=== PATIENT | male | born 1960 | race African-American/Black ===

== ENCOUNTER 2019-01-13 15:45 | Emergency (ER) | payer MEDICARE ==
[~2019-01-13] VITALS: Ht 188 cm; Wt 146.0 kg
[~2019-01-13 15:45] MED LIST: ALLOPURINOL100 MG PO; ALLOPURINOL300 MG OR; ALLOPURINOL300 MG PO; AMLODIPINE BESYL5 MG PO; AMLODIPINE5 MG OR; ASPIRIN EC81 MG PO; ATENOLOL100 MG OR; ATENOLOL50 MG PO; AUGMENTIN875TAB PO; BACTRIM DS1 TAB PO; BENADRY1 PO; BENICAR40 MG OR; CALCIUM600 M1 OR; CARDIZEM CD240 MG PO; CIPRO500 MG PO; CIPROFLOXACN500 MG PO; CLONIDINE0.1 MG PO; CLONIDINE0.2 MG OR; COREG12.5 MG PO; COREG6.25 MG PO; DILAUDID 2MG2 MG/TA1 PO; DIOVAN320 MG OR; DOCUSATE SOD100 MG PO; FLOMAX0.4 M1 PO; FLONASE NASAL50 MCG; FUROSEMIDE40 MG PO; HYDRALAZINE25 MG PO; IMDUR30 MG PO; LISINOPRIL10 MG PO; LO-DOSE ASA81 MG OR; LORTAB 5 OR; LORTAB 7.5 PO; LORTAB5 PO; LOTREL1 CA1 PO; LOTREL1 CA2 PO; LOVENOX30 MG/0.3 SC; MEDDOSEPAK PO; MILK OF MAG30 ML/UDC PO; MOTRIN800 MG OR; NORVASC10 M1 OR; NORVASC10 MG OR; NORVASC5 MG PO; OMEPRAZOLE20 MG PO; SPIRONOLACTONE25 MG PO; ULORIC40 MG PO; ULTRAM50 M1 PO; WARFARIN SODIUM5 MG PO; ZPAK PO
[2019-01-13 17:24] LABS: HEMATOCRIT 38.3 % (39.0-50.0); HEMOGLOBIN 12.2 g/dl (14.0-18.0); IMMATURE GRANULOCYTES 0.4 % (0.0-5.0); MEAN CELL VOLUME 86.7 fL CALC (80.0-100.0); MEAN CORPUSCULAR HGB 27.6 pG CALC (26.0-32.0); MEAN CORPUSCULAR HGB CONC 31.9 g/L CALC (32.0-36.0); NEUT# 5.07 thou/uL (1.82-7.42); RED BLOOD COUNT 4.42 mill/uL (4.70-6.10); RED CELL DISTRI WIDTH 13.9 % (11.5-15.5)
[2019-01-13] MEDS ORDERED: METOPROL TAR25 MG PO (17:31)
[2019-01-13] MEDS ORDERED: AMLODIPINE5 MG PO (17:32)
[2019-01-13] MEDS ORDERED: FUROSEMIDE20 MG PO (17:33)
[2019-01-13 17:36] LABS: ALBUMIN 3.9 g/dL (3.2-5.0); ALKALINE PHOSPHATASE 77 u/l (38-126); ANION GAP 14 (6-22 (CALC)); BUN 18 mg/dL (9-20); BUN/CREATININE RATIO 13 (12-20 (CALC)); CARBON DIOXIDE 28 mmol/l (22-30); CHLORIDE 101 mmol/l (95-108); CREATININE 1.4 mg/dL (0.7-1.3); GFR 52 ML/MIN (>=60 (CALC)); GFR FOR AFR.AMER. > 60 ML/MIN (>=60 (CALC)); PROTHROMBIN TIME 21.2 SECONDS (9.0-12.5); SGOT/AST 19 u/l (17-59); SODIUM 139 mmol/l (137-146); TOTAL PROTEIN 7.5 g/dL (6.3-8.2)
[2019-01-13] MEDS ORDERED: COUMADIN5 MG PO (17:37)
[2019-01-13 17:38] LABS: POTASSIUM 3.6 mmol/l (3.5-5.1)
[2019-01-13] MEDS ORDERED: WARFARIN7.5 MG PO (17:38)
[2019-01-13] MEDS ORDERED: VITAMIN D PO (17:40)
[2019-01-13 18:56] VITALS: BP 140/84
== END 2019-01-13 19:06 | disposition home or self-care (01) ==
LOC: ED 15:45
PROVIDERS: Emergency Medicine
DX: I10 Essential (primary) hypertension (principal); I48.91 Unspecified atrial fibrillation; Z79.01 Long term (current) use of anticoagulants

== ENCOUNTER 2019-02-01 19:35 | Emergency (ER) | payer MEDICARE ==
[~2019-02-01] VITALS: Ht 188 cm; Wt 141.8 kg
[~2019-02-01 19:35] MED LIST changes: +AMLODIPINE5 MG PO; +COUMADIN5 MG PO; +FUROSEMIDE20 MG PO; +METOPROL TAR25 MG PO; +VITAMIN D PO; +WARFARIN7.5 MG PO
[2019-02-01 19:45] VITALS: BP 164/94
[2019-02-01] MEDS ORDERED: MICARDIS H80 MG/25 M PO (19:54)
[2019-02-01] MEDS ORDERED: DOXYCYCL HYC100 MG PO (20:16)
[2019-02-01] MEDS ORDERED: TRAMADOL HCL50 MG PO (20:16)
== END 2019-02-01 20:32 | disposition home or self-care (01) ==
LOC: ED 19:35
DX: J01.90 Acute sinusitis, unspecified (principal); H10.021 Other mucopurulent conjunctivitis, right eye; R51 Headache; H53.8 Other visual disturbances; R09.81 Nasal congestion; R50.9 Fever, unspecified; I48.91 Unspecified atrial fibrillation

== ENCOUNTER → 2019-02-06 | Outpatient (REF) | payer MEDICARE ==
[~2019-02-06] MED LIST changes: +DOXYCYCL HYC100 MG PO; +MICARDIS H80 MG/25 M PO; +TRAMADOL HCL50 MG PO
[2019-02-06 08:19] LABS: CREATININE 1.8 mg/dL (0.7-1.3); POTASSIUM 3.4 mmol/l (3.5-5.1)
== END | disposition home or self-care (01) ==
LOC: LAB 07:16
PROVIDERS: ATTEND Internal Medicine
DX: I10 Essential (primary) hypertension (principal); N18.3 Chronic kidney disease, stage 3 (moderate)

== ENCOUNTER 2019-08-06 18:41 | Observation (INO) | payer MEDICARE ==
[~2019-08-06] VITALS: Ht 188 cm; Wt 131.0 kg
[~2019-08-06 18:41] MED LIST changes: +ACCU-CHEK FASTCLIX L XX; +GLIMEPIRIDE2 MG PO; +HYDROMORPHON8 MG PO; +JANUVIA50 MG PO; +LEVEMIR FL100 UNIT/M SC; -METOPROL TAR25 MG PO; +ONE TOUCH ULTRA 50 XX; +TOPROL XL PO; +WARFARIN1 MG PO; +WARFARIN2.5 MG PO
--- NOTE | 2019-08-06 18:50 | NUR ---
PATIENT ARRIVIED VIA FRONT DOOR LEFT SIDED WEAKNESS UPPER AND LOWER EXTREMITY, RIGHT SIDED FACIAL DROOP AND MILD DYSARTHRIA. VISUAL BLAIR INTACT, NO ATAXIA. NO SENSATION LOSS AND NO NEGLECT, PATIENT NOT ASPHASIC AND NO DRIFTS. HAND GRASPS EQUAL AND STRONG. STROKE ALERT CALLED
--- NOTE | 2019-08-06 18:55 | NUR ---
TO CT SCAN UPON ARRIVAL.
--- NOTE | 2019-08-06 19:26 | NUR ---
SWALLOW STUDY COMPLETE PATIENT ABLE TO SWALLOW WATER WITHOUT DIFFICULTY. PATIENT HAS POSITIVE GAG REFLEX
[2019-08-06 19:46] LABS: IMMATURE GRANULOCYTES 0.4 % (0.0-5.0); MEAN CORPUSCULAR HGB 27.9 pG CALC (26.0-32.0); MEAN CORPUSCULAR HGB CONC 32.9 g/L CALC (32.0-36.0); NEUT# 7.44 thou/uL (1.82-7.42); RED BLOOD COUNT 4.26 mill/uL (4.70-6.10); RED CELL DISTRI WIDTH 14.6 % (11.5-15.5)
[2019-08-06 19:51] LABS: HEMATOCRIT 36.2 % (39.0-50.0); HEMOGLOBIN 11.9 g/dl (14.0-18.0)
[2019-08-06 20:00] LABS: ACT PARTIAL THROMBO TIME 34.8 SECONDS (20.0-32.5); INTERNATIONAL NORMALIZED RATIO 1.4 RATIO (0.7-1.3); PROTHROMBIN TIME 14.7 SECONDS (9.0-12.5)
[2019-08-06] MEDS ORDERED: LEVEMIR FL100 UNIT/M SC (20:00)
--- NOTE | 2019-08-06 20:00 | NUR ---
NEURO INTACT NO DEFICITS NOTED
[2019-08-06 20:03] LABS: ALBUMIN 4.4 g/dL (3.2-5.0); BILIRUBIN, TOTAL 1.2 mg/dL (0.0-1.4); CREATININE 1.6 mg/dL (0.7-1.3); TOTAL PROTEIN 8.5 g/dL (6.3-8.2)
[2019-08-06] MEDS ORDERED: WARFARIN7.5 MG PO (20:11)
--- NOTE | 2019-08-06 21:30 | NUR ---
GOT UP TO BSC WITHOUT PROBLEM
--- NOTE | 2019-08-06 22:00 | NUR ---
REMAINS NEURO INTACT. AWAITING TRANSPORT TO FLOOR.
--- NOTE | 2019-08-06 22:35 | NUR ---
Admission Note Report Given to: ROSEMARIE ALTAMIRANO Transported by: X Wheelchair Stretcher Transported with: X Nurse Transporter X [employer] IV O2 X Communications Lead
[2019-08-06 22:40] VITALS: BP 143/85
--- NOTE | 2019-08-06 22:40 | NUR ---
PT ARRIVED TO THE FLOOR VIA WC ACCOMPANIED BY ED NURSE. PT APPEARS TO BE IN STABLE CONDITION. PT SELF AMBULATED TO STANDING SCALE, RESTROOM AND BACK TO BED. AIDE IS IN W/PT ORIENTING TO ROOM, BED, CALL SYSTEM, LIGHTS AND TV.
--- NOTE | 2019-08-06 22:55 | NUR ---
PT ASSESSMENT COMPLETED AT THIS TIME. PT DENIES ANY SOB/N/V/DIZZINESS/NUMBNESS OR CONFUSION AT THIS TIME. NEURO'S INTACT, SMALL AMOUNT OF MOUTH/LIP DROOP VISIBLE WHEN PT SPEAKS/PT REPORTS THIS HIS BASELINE "NORMAL" FOR HIM. STUNNER AND SHACKLER STRONG BILATERALLY, GOOD ROM TO BUE AND BLE/NO DRIFT OBSERVED. PT IN BED W/CALL LIGHT AT SIDE AND ENCOURAGED TO CALL IF ANY NEEDS ARISE.
--- NOTE | 2019-08-07 01:25 | NUR ---
PT SLEEPING AT THIS TIME. NO S/O DISTRESS NOTED. CALL LIGHT AT SIDE.
[2019-08-07 04:28] VITALS: BP 133/83
[2019-08-07 05:10] LABS: URINE BILIRUBIN - DIPSTICK NEGATIVE (NEGATIVE); URINE BLOOD DIPSTICK MODERATE (NEGATIVE); URINE COLOR YELLOW; URINE GLUCOSE - DIPSTICK NEGATIVE (NEGATIVE); URINE KETONE NEGATIVE (NEGATIVE); URINE NITRITE - DIPSTICK NEGATIVE (Negative); URINE PROTEIN - DIPSTICK TRACE mg/dL (NEG-TRACE); URINE SPECIFIC GRAVITY 1.015; URINE UROBILINOGEN - DIPSTICK 0.2 E.U./dL (0.2)
[2019-08-07 05:23] LABS: URINE LEUK ESTERASE NEGATIVE (NEGATIVE)
[2019-08-07 05:24] LABS: URINE EPITHELIAL CELLS FEW EPI/hpf (0-FEW); URINE RBC >100 RBC/hpf (0-5)
[2019-08-07 05:25] LABS: URINE BACTERIA FEW hpf
[2019-08-07 08:12] VITALS: BP 138/79
--- NOTE | 2019-08-07 08:17 | NUR ---
REPORT RECEIVED FROM ROSEMARIE ALTAMIRANO. PT SITTING UPRIGHT IN BED. DENIES PAIN. NO DIZZINESS, BLURRED VISION OR HEADACHE (ORIGINAL COMPLAINTS IN ED). REPORTING OF CONCERNS ENCOURAGED. PLAN OF CARE DISCUSSED. FALL PRECAUTIONS REINFORCED. CALL LIGHT REVIEWED AND IN REACH. PT ALERT ADN ORIENTED. SPEECH APPROPRAITE. TELE UNIT IN PLACE. HR 56 BPM. METOPROLOL ADN AMLODIPINE HELD AT THIS TIME, WILL DISCUSS W/ DR. BERNAL BEFORE ADMINISTERING. CALL LIGHT REVIEWED AND IN REACH. PT STATES UNDERSTANDING.
[2019-08-07 11:50] VITALS: BP 117/60
[2019-08-07 11:53] VITALS: BP 155/84
--- NOTE | 2019-08-07 13:36 | NUR ---
ANICETO RN IN ROOM REGARDING CVA EDUCATION PACKET. WILL FOLLOW-UP W/ EDUCATION TO ASSESS INFO RETENTION.
[2019-08-07 16:05] VITALS: BP 172/96
--- NOTE | 2019-08-07 16:09 | NUR ---
DR. BERNAL IN TO SEE PT. DISCHARGE HOME AGREED UPON, PENDING LAB AND MRI RESULTS.
[2019-08-07 16:36] LABS: CREATININE 1.5 mg/dL (0.7-1.3); POTASSIUM 3.1 mmol/l (3.5-5.1)
--- NOTE | 2019-08-07 17:35 | NUR ---
Discharge instructions given. Patient verbalizes understanding of same. Discharged in stable condition via Ambulatory to Home with spouse. All belongings sent with pt.
== END 2019-08-07 17:35 | disposition home or self-care (01) ==
LOC: ED 18:41 → ED-I 20:34 → ED 21:09 → MS2 21:10
PROVIDERS: Emergency Medicine; Internal Medicine; ADMIT Internal Medicine; ATTEND Internal Medicine
DX: R42 Dizziness and giddiness (principal); I12.9 Hypertensive chronic kidney disease with stage 1 through stage 4 chronic kidney disease, or unspecified chronic kidney disease; E11.22 Type 2 diabetes mellitus with diabetic chronic kidney disease; N18.3 Chronic kidney disease, stage 3 (moderate); I25.10 Atherosclerotic heart disease of native coronary artery without angina pectoris; G47.33 Obstructive sleep apnea (adult) (pediatric); I48.91 Unspecified atrial fibrillation; Z79.4 Long term (current) use of insulin; Z79.01 Long term (current) use of anticoagulants

== ENCOUNTER 2019-10-12 08:11 | Emergency (ER) | payer MEDICARE ==
[~2019-10-12] VITALS: Ht 188 cm; Wt 128.6 kg
[2019-10-12] MEDS ORDERED: MICARDIS80 MG PO (08:30)
[2019-10-12 08:53] LABS: HEMATOCRIT 30.3 % (39.0-50.0); IMMATURE GRANULOCYTES 0.3 % (0.0-5.0); MEAN CELL VOLUME 84.9 fL CALC (80.0-100.0); MEAN CORPUSCULAR HGB 27.7 pG CALC (26.0-32.0); MEAN CORPUSCULAR HGB CONC 32.7 g/L CALC (32.0-36.0); NEUT# 6.24 thou/uL (1.82-7.42); RED BLOOD COUNT 3.57 mill/uL (4.70-6.10); RED CELL DISTRI WIDTH 14.4 % (11.5-15.5)
[2019-10-12 08:54] LABS: HEMOGLOBIN 9.9 g/dl (14.0-18.0)
[2019-10-12 09:05] LABS: ALBUMIN 3.7 g/dL (3.2-5.0); BILIRUBIN, TOTAL 1.3 mg/dL (0.0-1.4); CREATININE 1.5 mg/dL (0.7-1.3); POTASSIUM 3.1 mmol/l (3.5-5.1); TOTAL PROTEIN 7.4 g/dL (6.3-8.2)
[2019-10-12 09:14] LABS: ACT PARTIAL THROMBO TIME 38.6 SECONDS (20.0-32.5); INTERNATIONAL NORMALIZED RATIO 1.7 RATIO (0.7-1.3); PROTHROMBIN TIME 17.5 SECONDS (9.0-12.5)
[2019-10-12] MEDS ORDERED: ULTRAM50 MG PO (10:52)
[2019-10-12 11:05] VITALS: BP 140/81
== END 2019-10-12 11:05 | disposition home or self-care (01) ==
LOC: ED 08:11
DX: M17.12 Unilateral primary osteoarthritis, left knee (principal); E11.22 Type 2 diabetes mellitus with diabetic chronic kidney disease; I12.9 Hypertensive chronic kidney disease with stage 1 through stage 4 chronic kidney disease, or unspecified chronic kidney disease; M10.09 Idiopathic gout, multiple sites; N18.4 Chronic kidney disease, stage 4 (severe); I25.10 Atherosclerotic heart disease of native coronary artery without angina pectoris; M06.9 Rheumatoid arthritis, unspecified; I48.91 Unspecified atrial fibrillation; Z79.4 Long term (current) use of insulin; M79.662 Pain in left lower leg

== ENCOUNTER 2021-06-15 10:07 | Emergency (ER) | payer MEDICARE ==
[~2021-06-15] VITALS: Ht 188 cm; Wt 137.3 kg
[~2021-06-15 10:07] MED LIST changes: +MICARDIS80 MG PO; +ULTRAM50 MG PO
[2021-06-15 11:18] LABS: HEMATOCRIT 37.9 % (39.0-50.0); HEMOGLOBIN 12.7 g/dl (14.0-18.0); IMMATURE GRANULOCYTES 0.2 % (0.0-5.0); MEAN CELL VOLUME 90.5 fL CALC (80.0-100.0); MEAN CORPUSCULAR HGB 30.3 pG CALC (26.0-32.0); MEAN CORPUSCULAR HGB CONC 33.5 g/dL CAL (32.0-36.0); NEUT# 6.11 thou/uL (1.82-7.42); RED BLOOD COUNT 4.19 mill/uL (4.70-6.10); RED CELL DISTRI WIDTH 12.4 % (11.5-15.5)
[2021-06-15 11:31] LABS: ALBUMIN 3.8 g/dL (3.2-5.0); BILIRUBIN, TOTAL 0.9 mg/dL (0.0-1.4); CREATININE 1.8 mg/dL (0.7-1.3); POTASSIUM 4.3 mmol/l (3.5-5.1); TOTAL PROTEIN 7.6 g/dL (6.3-8.2)
[2021-06-15 12:45] LABS: URINE BILIRUBIN - DIPSTICK NEGATIVE (NEGATIVE); URINE BLOOD DIPSTICK NEGATIVE (NEGATIVE); URINE COLOR YELLOW; URINE GLUCOSE - DIPSTICK NEGATIVE (NEGATIVE); URINE KETONE NEGATIVE (NEGATIVE); URINE LEUK ESTERASE NEGATIVE (NEGATIVE); URINE PH 5.5 (4.5-8.0); URINE PROTEIN - DIPSTICK 30 mg/dL (NEG-TRACE); URINE SPECIFIC GRAVITY 1.025; URINE UROBILINOGEN - DIPSTICK 0.2 E.U./dL (0.2)
[2021-06-15 12:46] LABS: URINE NITRITE - DIPSTICK NEGATIVE (Negative)
[2021-06-15 12:53] LABS: URINE RBC 0-2 RBC/hpf (0-5); URINE SQUAMOUS EPITHELIAL CELL FEW EPI/hpf (0-FEW)
[2021-06-15 13:03] VITALS: BP 111/78
[2021-06-16] MEDS ORDERED: ARNUITY EL50 MCG/ACT (16:23)
[2021-06-16] MEDS ORDERED: PROTONIX40 M2 PO (16:25)
[2021-06-16] MEDS ORDERED: TRI-BUFF ASA325 M2 PO (16:26)
[2021-06-16] MEDS ORDERED: CLONIDINE0.2 MG PO (16:28)
[2021-06-16] MEDS ORDERED: METOPROLOL SUCC50 MG PO (16:30)
[2021-06-16] MEDS ORDERED: BICALUTAMIDE50 MG PO (16:31)
[2021-06-16] MEDS ORDERED: TELMISARTAN80 MG PO (16:33)
[2021-06-16] MEDS ORDERED: ALLOPURINOL300 MG PO (16:35)
[2021-06-16] MEDS ORDERED: SPIRONOLACT25 MG PO (16:36)
[2021-06-16] MEDS ORDERED: NORVASC10 M1 PO (16:36)
[2021-06-16] MEDS ORDERED: OZEMPIC2 MG/1.5 M SC (16:38)
[2021-06-16] MEDS ORDERED: LORTAB 5/3255 MG PO (16:42)
[2021-06-16] MEDS ORDERED: ONE TOUCH ULTRA LANC (16:43)
== END 2021-06-15 13:10 | disposition home or self-care (01) ==
LOC: ED 10:07
PROVIDERS: Emergency Medicine
DX: R00.2 Palpitations (principal); I48.91 Unspecified atrial fibrillation; I12.9 Hypertensive chronic kidney disease with stage 1 through stage 4 chronic kidney disease, or unspecified chronic kidney disease; E11.22 Type 2 diabetes mellitus with diabetic chronic kidney disease; N18.4 Chronic kidney disease, stage 4 (severe); M10.9 Gout, unspecified; M06.9 Rheumatoid arthritis, unspecified; G47.30 Sleep apnea, unspecified

== ENCOUNTER 2021-06-16 14:25 | Inpatient (IN) | payer MEDICARE ==
[~2021-06-16] VITALS: Ht 188 cm; Wt 138.6 kg
[2021-06-16] VITALS (16 sets, daily range): BP systolic 108–150; BP diastolic 69–97
[2021-06-16 16:08] LABS: CREATININE 1.8 mg/dL (0.7-1.3); POTASSIUM 4.1 mmol/l (3.5-5.1)
[2021-06-16] MEDS ORDERED: ARNUITY EL50 MCG/ACT (16:23)
[2021-06-16] MEDS ORDERED: PROTONIX40 M2 PO (16:25)
[2021-06-16] MEDS ORDERED: TRI-BUFF ASA325 M2 PO (16:26)
[2021-06-16] MEDS ORDERED: CLONIDINE0.2 MG PO (16:28)
[2021-06-16] MEDS ORDERED: METOPROLOL SUCC50 MG PO (16:30)
[2021-06-16] MEDS ORDERED: BICALUTAMIDE50 MG PO (16:31)
[2021-06-16] MEDS ORDERED: TELMISARTAN80 MG PO (16:33)
[2021-06-16] MEDS ORDERED: ALLOPURINOL300 MG PO (16:35)
[2021-06-16] MEDS ORDERED: SPIRONOLACT25 MG PO (16:36)
[2021-06-16] MEDS ORDERED: NORVASC10 M1 PO (16:36)
[2021-06-16] MEDS ORDERED: OZEMPIC2 MG/1.5 M SC (16:38)
[2021-06-16] MEDS ORDERED: LORTAB 5/3255 MG PO (16:42)
[2021-06-16] MEDS ORDERED: ONE TOUCH ULTRA LANC (16:43)
[2021-06-17] VITALS (16 sets, daily range): BP systolic 115–160; BP diastolic 64–83
[2021-06-17 05:29] LABS: CREATININE 1.5 mg/dL (0.7-1.3); POTASSIUM 4.3 mmol/l (3.5-5.1)
[2021-06-17 05:52] LABS: HEMATOCRIT 37.5 % (39.0-50.0); IMMATURE GRANULOCYTES 0.1 % (0.0-5.0); MEAN CELL VOLUME 93.5 fL CALC (80.0-100.0); MEAN CORPUSCULAR HGB 29.9 pG CALC (26.0-32.0); NEUT# 4.97 thou/uL (1.82-7.42); RED BLOOD COUNT 4.01 mill/uL (4.70-6.10); RED CELL DISTRI WIDTH 12.4 % (11.5-15.5)
[2021-06-17] MEDS ORDERED: CVS FLUTICASON50 MCG (07:50)
[2021-06-17] MEDS ORDERED: HYDROMORPHON8 MG PO (07:53)
[2021-06-18 00:26] VITALS: BP 136/74
[2021-06-18 02:01] VITALS: BP 137/69
[2021-06-18 04:00] VITALS: BP 136/74
[2021-06-18 05:36] VITALS: BP 133/70
[2021-06-18 07:52] VITALS: BP 140/80
[2021-06-18 11:00] VITALS: BP 137/66
[2021-06-18] MEDS ORDERED: SORINE80 MG PO (11:19)
== END 2021-06-18 13:00 | disposition home or self-care (01) | DRG 309 ==
LOC: ICU 14:25
PROVIDERS: ADMIT Internal Medicine; ATTEND Internal Medicine
DX: I48.92 Unspecified atrial flutter (principal); N18.4 Chronic kidney disease, stage 4 (severe); I48.91 Unspecified atrial fibrillation; I12.9 Hypertensive chronic kidney disease with stage 1 through stage 4 chronic kidney disease, or unspecified chronic kidney disease; E11.22 Type 2 diabetes mellitus with diabetic chronic kidney disease; N18.30 Chronic kidney disease, stage 3 unspecified; D63.1 Anemia in chronic kidney disease; I25.10 Atherosclerotic heart disease of native coronary artery without angina pectoris; G47.33 Obstructive sleep apnea (adult) (pediatric); M10.9 Gout, unspecified; M06.9 Rheumatoid arthritis, unspecified; Z85.46 Personal history of malignant neoplasm of prostate; Z79.01 Long term (current) use of anticoagulants; Z20.822 Contact with and (suspected) exposure to COVID-19; R00.2 Palpitations

== ENCOUNTER 2022-04-26 07:14 | Emergency (ER) | payer MEDICARE ==
[~2022-04-26] VITALS: Ht 188 cm; Wt 136.0 kg
[~2022-04-26 07:14] MED LIST changes: +ARNUITY EL50 MCG/ACT; +BICALUTAMIDE50 MG PO; +CLONIDINE0.2 MG PO; +CVS FLUTICASON50 MCG; +LORTAB 5/3255 MG PO; +METOPROLOL SUCC50 MG PO; +NORVASC10 M1 PO; +ONE TOUCH ULTRA LANC; +OZEMPIC2 MG/1.5 M SC; +PROTONIX40 M2 PO; +SORINE80 MG PO; +SPIRONOLACT25 MG PO; +TELMISARTAN80 MG PO; +TRI-BUFF ASA325 M2 PO
[2022-04-26 07:25] VITALS: BP 141/88
[2022-04-26 07:31] VITALS: BP 152/90
[2022-04-26 07:51] LABS: HEMOGLOBIN 11.2 g/dl (14.0-18.0); IMMATURE GRANULOCYTES 0.2 % (0.0-5.0); MEAN CELL VOLUME 89.7 fL CALC (80.0-100.0); MEAN CORPUSCULAR HGB 29.6 pG CALC (26.0-32.0); MEAN CORPUSCULAR HGB CONC 32.9 g/dL CAL (32.0-36.0); NEUT# 6.76 thou/uL (1.82-7.42); RED BLOOD COUNT 3.79 mill/uL (4.70-6.10); RED CELL DISTRI WIDTH 12.9 % (11.5-15.5)
[2022-04-26 08:01] VITALS: BP 138/84
[2022-04-26 08:11] LABS: ALBUMIN 3.8 g/dL (3.2-5.0); BILIRUBIN, TOTAL 0.6 mg/dL (0.0-1.4); CREATININE 1.6 mg/dL (0.7-1.3); POTASSIUM 4.4 mmol/l (3.5-5.1); TOTAL PROTEIN 7.2 g/dL (6.3-8.2)
[2022-04-26 08:31] VITALS: BP 143/85
[2022-04-26] MEDS ORDERED: LORTAB 1010 MG PO (08:43)
[2022-04-26] MEDS ORDERED: MEDDOSEPAK PO (08:43)
[2022-04-26 08:53] VITALS: BP 143/85
== END 2022-04-26 09:03 | disposition home or self-care (01) ==
LOC: ED 07:14
PROVIDERS: Emergency Medicine
DX: M10.09 Idiopathic gout, multiple sites (principal); I12.9 Hypertensive chronic kidney disease with stage 1 through stage 4 chronic kidney disease, or unspecified chronic kidney disease; E11.22 Type 2 diabetes mellitus with diabetic chronic kidney disease; N18.4 Chronic kidney disease, stage 4 (severe); I25.10 Atherosclerotic heart disease of native coronary artery without angina pectoris; M06.9 Rheumatoid arthritis, unspecified; I48.91 Unspecified atrial fibrillation